=== PATIENT | female | born 1960 | race Asian ===

== ENCOUNTER 2018-07-18 12:50 | Emergency (ER) | payer OTHER ==
[~2018-07-18] VITALS: Ht 154.9 cm; Wt 51.9 kg
[2018-07-18 13:04] VITALS: Ht 154.9 cm; Wt 51.9 kg
[2018-07-18 16:35] LABS: BASOPHIL % 0.4 % (0-2); PLATELET COUNT 239 x10^3mcL (130-400); RED CELL DISTRIBUTION WIDTH 13.7 % (11.5-14.5)
[2018-07-18 16:42] LABS: CALCIUM 8.9 mg/dL (8.5-10.1); CARBON DIOXIDE 29.3 mmol/L (21-32); CHLORIDE SERUM 104 mmol/L (98-107); CREATININE SERUM 0.6 mg/dL (0.6-1.0); GFR1 > 60 mL/min; GLUCOSE SERUM 92 mg/dL (74-106); POTASSIUM SERUM 3.6 mmol/L (3.5-5.1); SODIUM SERUM 142 mmol/L (136-145)
[2018-07-18 17:09] VITALS: BP 127/64
== END 2018-07-18 17:09 | disposition home or self-care (01) ==
LOC: ED 12:50
PROVIDERS: Emergency Medicine
DX: K29.60 Other gastritis without bleeding (principal); R53.1 Weakness; I10 Essential (primary) hypertension
CPT/HCPCS: 36415; Q0162